=== PATIENT | male | born 1985 | race Caucasian/White ===

== ENCOUNTER → 2021-03-11 | Outpatient (CLI) | payer OTHER ==
[~2021-03-11] MED LIST: DEXA4TA PO; LIDOCAINE 1% MDV 20ML VIAL As Ordered ONE; MIDAZOLAM INJ 2MG/2ML VIAL (J2250 PER 1MG) As Ordered ONE; ONDA8TAB8 PO; PROC10TA4 PO; ceFAZolin 1GM VIAL (J0690 PER 500MG) As Ordered ONE; diphenhydrAMINE 50MG/ML VIAL (J1200) As Ordered ONE; fentaNYL 100 MCG/2 ML INJECTION (J3010) As Ordered ONE
--- NOTE | 2021-03-11 15:02 | IRHP ---
[facility] IR Pre-Procedure H & P General Date of Service: March 11, 2021 Procedure: Same Day Surgery Interval History and Physical I have seen the patient and reviewed last H & P performed within 30 days. There is no significant interval change. History of Present Illness Chief Complaint The patient is a 36-year-old male admitted with a reason for visit of Testicular Ca. PRE-PROCEDURE DIAGNOSIS: Testicular cancer HEART: Normal rate. LUNGS: Normal breathing at rest. ASA Classification ASA Classification: II-Mild systemic disease Mallampati Score: II NPO: Yes Problems with prior sedation: No Obstructive Sleep Apnea: No Plan moderate sedation Allergies Coded Allergies: No Known Allergies (Verified Allergy, Unknown, 03/06/21) PEPE TRIANA MD March 11, 2021 15:02
[2021-03-11 17:40] VITALS: BP 117/78
--- NOTE | 2021-03-12 13:11 | IRPON ---
IR Postoperative Note Date Of Procedure: March 11, 2021 Time Of Procedure: 16:00 IR Postoperative Note IR Ultrasound and fluoroscopy guided port placement IR Ultrasound of the neck. IR Moderate sedation. Clinical indication: Testicular cancer. Physician: Dr. Moya. Procedure: The patient was advised of the benefits, risks, and alternatives of the procedure and informed consent was obtained. A time-out was performed with verification of the patient's name, MRN, site of procedure and type of procedure to be performed. The patient was positioned in the supine position on the angiographic table. The site was prepped and draped in the usual sterile fashion. Moderate sedation was performed by the physician including the presence of an independent trained RN who assisted and monitored the patient's level of consciousness and physiologic status. Following the administration of fentanyl and Versed , the physician spent 45 minutes of continuous face to face time with the patient. Ultrasound of the neck reveals a patent and compressible right internal jugular vein. A circular knife cutter machine radiograph reveals no gross abnormality. The neck and anterior chest wall were anesthetized with lidocaine. The right internal jugular vein was accessed using a microintroducer needle under ultrasound guidance, via a lateral approach. An 018 wire was advanced into the superior vena cava, the needle was removed and a microsheath was placed. An Amplatz wire was then passed into the inferior vena cava. An incision at the internal jugular vein access site and anterior chest wall were made using a scalpel. An incision was made at the anterior chest wall. A small pocket was created using a combination of blunt and sharp dissection. A tunneling device was then used to pass the catheter from the pocket to the neck puncture site. An 8- Iranian Angio Cardize Smart power port was then positioned in the pocket. The catheter was then measured and cut. The introducer sheath was exchanged for a peel-away sheath. The catheter was passed through the peel-away sheath into the internal jugular vein and the peel-away sheath was removed. The port tip was positioned at the cavoatrial junction. The port was then accessed with a Garcia needle. The port flushes and aspirates well. The puncture site in the neck was closed. The chest wall incision was then closed with 2-0 Vicryl and 4-0 Monocryl. Glue and Steri- Strips were applied. A sterile dressing was then applied. The patient tolerated the procedure well and was returned to the PRU in stable condition. Estimated blood loss: <5 ml. Complications: None. Conclusion: 1. Successful placement of an 8-Iranian Angio dynamics Smart power port via the right internal jugular vein. The port is ready for immediate use. 2. Patient to follow up in IR clinic in 2 weeks. Thank you for this referral. PEPE MOYA MD March 12, 2021 13:11
== END ==
LOC: M IRPRO 14:01
PROVIDERS: ATTEND Radiology Diagnostic Radiology
DX: C62.90 Malignant neoplasm of unspecified testis, unspecified whether descended or undescended (principal)
CPT/HCPCS: 36561; 99152; 99153; C1769; C1788; C1894; J0690; J1200; J1642; J1644; J2250; J3010

== ENCOUNTER → 2021-03-26 | Outpatient (POV) | payer OTHER ==
[~2021-03-26] VITALS: Ht 175.3 cm; Wt 160.0 kg
[~2021-03-26] MED LIST changes: -LIDOCAINE 1% MDV 20ML VIAL As Ordered ONE; -MIDAZOLAM INJ 2MG/2ML VIAL (J2250 PER 1MG) As Ordered ONE; -ceFAZolin 1GM VIAL (J0690 PER 500MG) As Ordered ONE; -diphenhydrAMINE 50MG/ML VIAL (J1200) As Ordered ONE; -fentaNYL 100 MCG/2 ML INJECTION (J3010) As Ordered ONE
--- NOTE | 2021-03-27 08:34 | IRPN ---
[facility] IR Progress Note IR Progress Note DATE: March 26, 2021 FOLLOW-UP: Status post port placement. Patient states port site feels good. No pain, no fevers, no chills. Patient reports the port has been used without any issues. ON EXAMINATION: Port site appears to be healing well. Dermabond and Steri-Strips are off. No redness, tenderness or fluctuance at site. IMPRESSION: Doing well status post port placement. No further follow-up scheduled unless initiated by patient and/or referring provider. Thank you for this referral Allergies Coded Allergies: No Known Allergies (Verified Allergy, Unknown, 03/06/21) VS,Fishbone, I+O VS, Fishbone, I+O Vital Signs Date Time Temp Pulse Resp B/P (MAP) Pulse Ox O2 Delivery O2 Flow Rate FiO2 03/26/21 10:15 98.0 95 20 100 Room Air PEPE TRIANA MD March 27, 2021 08:34
== END ==
LOC: M IRPOV 09:39
PROVIDERS: ATTEND Radiology Diagnostic Radiology
DX: Z45.2 Encounter for adjustment and management of vascular access device (principal)

== ENCOUNTER → 2021-04-18 | Outpatient (CLI) | payer OTHER ==
[~2021-04-18] MED LIST changes: +GASTROGRAFIN SOLUTION 30ML (Q9963) As Ordered ONE; +ISOVUE-370 76% 100ML VIAL As Ordered ONE
--- NOTE | 2021-04-19 06:27 | REP ---
INDICATION: TESTICULAR TUMOR COMPARISON: 02/12/2021 TECHNIQUE: Axial contrast enhanced images from the thoracic inlet to the upper abdomen with coronal and sagittal reformations using 100 ml Isovue 370 intravenous contrast material. Examination followed by CT of the abdomen and pelvis. This CT examination was performed using the following dose reduction techniques: Automated exposure control, adjustment of mA and/or kv according to the patient's size, and use of iterative reconstruction technique. FINDINGS: Pulmonary embolus extends from the right main pulmonary artery into right lower lobe branches. Bilateral lung randhawa are well aerated. Very small nodule in the right upper lung zone measures 3 mm (series 201; image 28) along with smaller similar nodular densities in the posterior aspect of the right apex. No further acute consolidation, nodule or mass. No effusion. No pneumothorax. Tracheobronchial tree is patent. Further evaluation of the mediastinum demonstrates normal thoracic aorta and heart/pericardium. No axillary, hilar, or mediastinal adenopathy. IMPRESSION: 1. Pulmonary embolus in the right main pulmonary artery extending to the right lower lobe. 2. Small enhancing nodules in the right upper lung zone cannot exclude metastatic foci and appear relatively new as compared to 02/12/2021. <Electronically signed by Art Maria > 04/19/21 0623
--- NOTE | 2021-04-19 06:32 | REP ---
INDICATION: TESTICULAR TUMOR. COMPARISON: 02/11/2021 TECHNIQUE: Axial contrast-enhanced images from the lung bases to the pubic symphysis using 100 cc Isovue 370 intravenous contrast material. Delayed images of the abdomen along with coronal and sagittal reformations obtained. This CT examination was performed using the following dose reduction techniques: Automated exposure control, adjustment of mA and/or kv according to the patient's size, and the use of iterative reconstruction technique. FINDINGS: Large cystic presumed lymph node in the retrocaval/right para-aortic retroperitoneum measuring greater than 7 cm diameter is similar in appearance but significantly decreased in size when compared to prior examination. Liver, spleen, pancreas, gallbladder, bilateral adrenal glands and kidneys are normal. The enteric system including stomach, small, and large bowel appears normal. No evidence for obstruction or acute inflammatory process. Normal terminal ileum and appendix are identified in the right lower quadrant. Sigmoid diverticula noted without acute diverticulitis. Pelvis demonstrates normal bladder and age-appropriate prostate/seminal vesicles. No ascites. No free air. Abdominal aorta and vasculature appear normal. Musculoskeletal structures are intact and without acute osseous abnormality. IMPRESSION: 1. Large cystic lesion in the retroperitoneum as described above likely representing lymph nodes again identified but considerably decreased in size when compared to 02/11/2021. No further obvious adenopathy or mass lesion/metastatic disease. 2. No further acute abdominopelvic pathology appreciated. <Electronically signed by Art Maria > 04/19/21 0628
== END ==
LOC: M RAD 12:10
PROVIDERS: ATTEND Internal Medicine Hematology & Oncology
DX: D70.9 Neutropenia, unspecified (principal); R91.8 Other nonspecific abnormal finding of lung field; I26.99 Other pulmonary embolism without acute cor pulmonale
CPT/HCPCS: 71260; 74177; J1642; Q9963; Q9967

== ENCOUNTER → 2021-04-23 | Outpatient (CLI) | payer OTHER ==
[~2021-04-23] MED LIST changes: +ELIQ5TAB PO; -GASTROGRAFIN SOLUTION 30ML (Q9963) As Ordered ONE; -ISOVUE-370 76% 100ML VIAL As Ordered ONE
--- NOTE | 2021-04-23 10:48 | REP ---
INDICATION: EBOLISM COMPARISON: None. TECHNIQUE: Alston scale and color Doppler evaluation using linear high frequency transducer. FINDINGS: Ultrasound examination of the right and left lower extremity deep venous structures from the common femoral vein through the calf/ankle to include the peroneal, and tibial veins demonstrates normal compressibility flow and wave patterns in response to respiration and augmentation. There is no evidence for deep venous thrombosis. IMPRESSION: No evidence for deep venous thrombosis bilateral lower extremities. <Electronically signed by Art Maria > 04/23/21 [id number]
--- NOTE | 2021-04-23 10:53 | REP ---
INDICATION: EMBOLISM COMPARISON: None. TECHNIQUE: Alston scale and color Doppler evaluation using linear high frequency transducer. FINDINGS: Ultrasound examination of the left upper extremity demonstrates normal flow and no evidence for deep venous thrombosis. Ultrasound examination of the right upper extremity demonstrates nonocclusive possibly chronic thrombus in the right axillary and proximal basilic veins. Patient gives a history of prior thrombus. No occluding thrombus in the right upper extremity noted IMPRESSION: Nonocclusive thrombus in the right upper extremity possibly chronic. Left upper extremity is normal. <Electronically signed by Art Maria > 04/23/21 [id number]
== END ==
LOC: M RAD 09:29
PROVIDERS: ATTEND Internal Medicine Hematology & Oncology
DX: I82.A11 Acute embolism and thrombosis of right axillary vein (principal); I82.611 Acute embolism and thrombosis of superficial veins of right upper extremity

== ENCOUNTER 2021-05-10 10:47 | Inpatient (IN) | payer OTHER ==
[~2021-05-10] VITALS: Ht 175.3 cm; Wt 75.6 kg
[~2021-05-10 10:47] MED LIST changes: +PANT40TA29 PO
[2021-05-10] MEDS ORDERED: NS 1,000 ML IV ONE (12:40)
[2021-05-10] MEDS ORDERED: GI COCKTAIL 50ML BTL(HYOSCYAMINE/MAALOX/LIDOCAINE VISCOUS)(1:3:1) PO ONE (12:40)
[2021-05-10 13:50] LABS: HEMOGLOBIN 7.2 g/dl (13.5-17.5); LYMPH # 0.2 10^3/uL (1.5-5.0); MEAN CORPUSCULAR HEMOGLOBIN 30.9 pg (27.0-33.0); MEAN CORPUSCULAR HGB CONC 35.5 g/dl (32.0-36.5); MEAN CORPUSCULAR VOLUME 87.1 fl (80.0-96.0); MONO % 4.3 % (2.0-8.0); NEUTROPHILS % 8.7 % (36.0-66.0); RED BLOOD COUNT 2.33 10^6/uL (4.30-6.10)
[2021-05-10 14:42] LABS: ALBUMIN 3.7 GM/DL (3.2-5.2); ALT/SGPT 19 U/L (12-78); BILIRUBIN,DIRECT 0.5 MG/DL (0.0-0.2); BILIRUBIN,TOTAL 1.8 MG/DL (0.2-1.0); BLOOD UREA NITROGEN 23 MG/DL (7-18); CALCIUM LEVEL 8.6 MG/DL (8.5-10.1); CARBON DIOXIDE LEVEL 26 MEQ/L (21-32); CHLORIDE LEVEL 99 MEQ/L (98-107); CK-MB VALUE MASS < 1.0 NG/ML (<3.6); CPK CREATINE PHOSPHOKINASE 18 U/L (39-308); CREATININE FOR GFR 1.11 MG/DL (0.70-1.30); FREE T4 1.34 NG/DL (0.76-1.46); GLOMERULAR FILTRATION RATE > 60.0 (>60); GLUCOSE, FASTING 104 MG/DL (70-100); LIPASE 45 U/L (73-393); MB/CK RELATIVE INDEX 5.56 (< OR =4); POTASSIUM SERUM 4.4 MEQ/L (3.5-5.1); SODIUM LEVEL 132 MEQ/L (136-145); THYROID STIMULATING HORMONE 0.487 uIU/ML (0.358-3.740); TOTAL PROTEIN 6.9 GM/DL (6.4-8.2); TROPONIN I < 0.02 NG/ML (< 0.10)
[2021-05-10 14:50] LABS: WHITE BLOOD COUNT 0.2 10^3/uL (4.0-10.0)
[2021-05-10 14:51] LABS: HEMATOCRIT 20.3 % (42.0-52.0); PLATELET COUNT, AUTOMATED 5 10^3/uL (150-450)
[2021-05-10] MEDS ORDERED: ISOVUE-370 76% 100ML VIAL As Ordered ONE (15:00)
--- NOTE | 2021-05-10 15:25 | REP ---
INDICATION: exhaustion on exertion known PE COMPARISON: 04/18/2021 TECHNIQUE: Axial contrast enhanced images from the thoracic inlet to the upper abdomen using pulmonary embolus technique with multiplanar re-formations. 100 ml Isovue 370 intravenous contrast material administered without complication. This CT examination was performed using the following dose reduction techniques: Automated exposure control, adjustment of mA and/or kv according to the patient's size, and use of iterative reconstruction technique. FINDINGS: Satisfactory enhancement of the pulmonary vasculature is achieved and no filling defects are identified to suggest pulmonary embolus. Further evaluation of the mediastinum demonstrates normal thoracic aorta, heart and pericardium. Bkczyy-F-Bler identified with tip in the SVC. The bilateral lung randhawa are well aerated and clear without consolidation pleural effusion or pneumothorax. Tracheobronchial tree is patent. No nodule or mass lesion is identified. No adenopathy noted. Surrounding musculoskeletal structures intact IMPRESSION: No evidence for pulmonary embolus. No acute mediastinal or pleural parenchymal process. <Electronically signed by Art Maria > 05/10/21 0522
--- NOTE | 2021-05-10 15:32 | REP ---
INDICATION: indigestion known metastatic germ cell tumor. COMPARISON: 04/18/2021 TECHNIQUE: Axial contrast-enhanced images from the lung bases to the pubic symphysis using 100 cc Isovue 370 intravenous contrast material. Coronal and sagittal reformations obtained. This CT examination was performed using the following dose reduction techniques: Automated exposure control, adjustment of mA and/or kv according to the patient's size, and the use of iterative reconstruction technique. FINDINGS: Esophageal wall thickening of the distal esophagus may reflect esophagitis and should be correlated clinically. Septated cystic lesion in the retroperitoneal space which appears to somewhat compress and surround the IVC is again noted measuring approximately 6.3 x 5.8 x 8.7 cm and slightly decreased in size when compared to prior examination. Liver, spleen, pancreas, gallbladder, bilateral adrenal glands and kidneys are normal. The enteric system including stomach, small, and large bowel appears normal. No evidence for obstruction or acute inflammatory process. Normal terminal ileum and appendix are identified in the right lower quadrant. Pelvis demonstrates normal bladder and age-appropriate prostate/seminal vesicles. No ascites. No free air. No further adenopathy. Abdominal aorta and vasculature appear normal. Musculoskeletal structures are intact and without acute osseous abnormality. IMPRESSION: 1. Known retroperitoneal cystic structure adjacent to the IVC again noted which may be slightly decreased in size from prior examination. No further similar abnormal lesions or adenopathy noted. No ascites. 2. Circumferential thickening to the distal esophagus may reflect esophagitis and should be correlated clinically. 3. No further acute abdominopelvic pathology appreciated. <Electronically signed by Art Maria > 05/10/21 [id number]
[2021-05-10 16:42] LABS: RSV AMPLIFICATION NEGATIVE (NEGATIVE)
[2021-05-10] MEDS ORDERED: ONDANSETRON 4MG/2ML VIAL IV PRN (16:55)
[2021-05-10] MEDS ORDERED: GI COCKTAIL 50ML BTL(HYOSCYAMINE/MAALOX/LIDOCAINE VISCOUS)(1:3:1) PO PRN (17:15)
--- NOTE | 2021-05-10 17:33 | HPEPDOC ---
General Date of Admission May 10, 2021 at 16:43 Date of Service: May 10, 2021 Chief Complaint The patient is a 36-year-old male admitted with a reason for visit of Neutropenia, Pancytopenia. Source: Patient History of Present Illness Mr. Suggs is a 36 year old male with testicular cancer who just completed chemotherapy on 05/04/21 who presents with fatigue and indigestion. He had finished 4 round of etoposide cis-grayling and is planning for surgery at [facility]. About 3 days ago, he started to feel weak and fatigue with indigestion. He had upper-epigastric discomfort with nausea. He had watery diarrhea once a day without blood or darkening of stool. He had a temperature between 99.3 to 100.3. Today, since his symptoms weren't improving, he came to the ED for evaluation. While in the ED, he was given a GI cocktail which helped with his abdominal discomfort. He was found to be pancytopenic with WBC 0.2, Hgb 7.2, and platelet 5. I spoke with oncology, Dr. Rogers, who also saw the patient. Patient will be admitted for pancytopenia and symptomatic anemia. Home Medications Scheduled Apixaban (Eliquis) 5 Mg Tablet, 1 TAB PO as directed 2 tablets twice a day for 7 days then one tablet twice daily Pantoprazole Sodium (Pantoprazole Sodium) 40 Mg Tablet.dr, 40 MG PO DAILY Scheduled PRN Ondansetron (Ondansetron Odt) 8 Mg Tab.rapdis, 8 MG PO Q8HP PRN for NAUSEA OR VOMITING Prochlorperazine Maleate (Prochlorperazine Maleate) 10 Mg Tablet, 10 MG PO Q6H PRN for NAUSEA OR VOMITING Allergies Coded Allergies: No Known Allergies (Verified Allergy, Unknown, 03/06/21) Past Medical History Medical History 1. 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 Pulmonary embolism seen on 04/18/21 Surgical History 1. Chemo-port placement Family History Patient is adopted. Knows that Crohn's disease runs on mother's side of the family Social History * Smoker: Denies Alcohol: occationally Drugs: denies A-FIB/CHADSVASC A-FIB History Current/History of A-Fib/PAF?: No Review of Systems Constitutional: Reports: Weakness, Fatigue; Denies: Chills, Fever Eyes: Denies: Vision change ENT: Denies: Sore Throat Skin: Denies: Rash Pulmonary: Reports: Cough (Mild cough since fatigue started); Denies: Dyspnea Cardiovascular: Denies: Chest Pain Gastrointestinal: Reports: Abdominal Pain (Upper abdominal indigestion) Genitourinary: Denies: Dysuria Hematologic: Denies: Bruising Neurological: Denies: Numbness Psych: Reports: Anxiety Physical Examination General Exam: Positive: Alert, Cooperative Eye Exam: Positive: EOMI; Negative: Sclera icteric ENT Exam: Positive: Atraumatic Neck Exam: Positive: Supple Chest Exam: Positive: Clear to auscultation; Negative: Rales, Rhonchi, Wheezing Heart Exam: Positive: Tachycardic, Regular Rhythm Abdomen Exam: Positive: Normal bowel sounds, Soft; Negative: Tenderness Extremity Exam: Negative: Edema Neuro Exam: Positive: Normal Speech, Cranial Nerves 3-12 NL Psych Exam: Positive: Mental status NL, Mood NL Vital Signs Vital Signs Date Time Temp Pulse Resp B/P (MAP) Pulse Ox O2 Delivery O2 Flow Rate FiO2 05/10/21 14:36 05/10/21 14:31 99.8 96 19 100 Room Air Laboratory Data Labs 24H Laboratory Tests 2 05/10/21 13:31: Immature Granulocyte % (Auto) 0.0, Neutrophils (%) (Auto) 8.7L, Lymphocytes (%) (Auto) 87.0H, Monocytes (%) (Auto) 4.3, Eosinophils (%) (Auto) 0.0, Basophils (%) (Auto) 0.0, Neutrophils # (Auto) 0.0L, Lymphocytes # (Auto) 0.2L, Monocytes # (Auto) 0.0, Eosinophils # (Auto) 0.0, Basophils # (Auto) 0.0, Nucleated Red Blood Cells % (auto) 0.0, Immature Platelet Fraction 2.6, Anion Gap 7L, Glomerular Filtration Rate > 60.0, Calcium Level 8.6, Total Bilirubin 1.8H, Direct Bilirubin 0.5H, Aspartate Amino Transf (AST/SGOT) 9, Alanine Aminotransferase (ALT/SGPT) 19, Alkaline Phosphatase 54, Total Creatine Kinase 18L, Creatine Kinase MB < 1.0, Creatine Kinase MB Relative Index 5.56H, Troponin I < 0.02, Total Protein 6.9, Albumin 3.7, Albumin/Globulin Ratio 1.2, Lipase 45L, Thyroid Stimulating Hormone (TSH) 0.487, Free Thyroxine 1.34 05/10/21 15:48: Coronavirus (COVID-19)(PCR) NEGATIVE, Influenza Type A (RT-PCR) NEGATIVE, Influenza Type B (RT-PCR) NEGATIVE, Respiratory Syncytial Virus (PCR) NEGATIVE CBC/BMP Laboratory Tests 05/10/21 13:31 Assessment/Plan Mr. Suggs is a 36 year old male with testicular cancer who just completed chemotherapy on 05/04/21 who presents with fatigue and indigestion. He was found to be pancytopenic. This pancytopenia and indigestion is most likely due to chemotherapy. Oncology evaluated patient and provided recommendations. Plan / VTE VTE Prophylaxis Ordered?: Yes Plan Plan 1. Neutropenia -No recorded fever, but low grade fever -Patient should be in individual room -Requesting neutropenic diet (no raw foods like salad, only cooked foods) -Zosyn IV as prophylaxis -Neupogen 480mcg daily as long as absolute neutrophil count is less than 500 2. Symptomatic anemia -Most likely cause of exertional dyspnea and weakness -Unlikely GI bleed as no change in stool or frequent bowel movement -Most likely due to chemotherapy -Hgb goal of 9 -Being transfused with 2u pRBC -Hold apixaban 3. Thrombocytopenia -Transfusing platelets -Platelet goal of 20,000 4. History of pulmonary embolism -Possibly due to clot on PICC/Port -Repeat CT angio is negative for clot -Hold apixaban at this time 5. DVT ppx -No chemical ppx -TEDs Disposition: Pending clinical improvement FILI PALAFOX DO May 10, 2021 17:33
[2021-05-10 18:38] VITALS: BP 110/65
[2021-05-10 18:58] VITALS: BP 119/65
[2021-05-10 19:37] VITALS: BP 125/72
[2021-05-10 19:38] VITALS: BP 125/72
[2021-05-10 20:25] VITALS: BP_SYST 123; BP_DIAS 72; BP_DIAS 73
--- NOTE | 2021-05-10 20:26 | ECGEPIP ---
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
[2021-05-10] MEDS: FILGRASTIM 480 MCG/0.8 ML SYRINGE (J1442) SC SCH (21:27)
[2021-05-10] MEDS: PIPERACILLIN/TAZOBACTAM SOD 3.375 GM in D5W MINI-BAG PLUS 50 ML IV SCH (21:28)
[2021-05-10 23:54] LABS: MEAN CORPUSCULAR HGB CONC 35.6 g/dl (32.0-36.5); MEAN CORPUSCULAR VOLUME 87.2 fl (80.0-96.0); RED BLOOD COUNT 1.87 10^6/uL (4.30-6.10)
[2021-05-10 23:55] LABS: WHITE BLOOD COUNT 0.3 10^3/uL (4.0-10.0)
[2021-05-10 23:56] LABS: HEMATOCRIT 16.3 % (42.0-52.0); HEMOGLOBIN 5.8 g/dl (13.5-17.5)
[2021-05-10 23:57] LABS: PLATELET COUNT, AUTOMATED 17 10^3/uL (150-450)
[2021-05-11] VITALS (23 sets, daily range): BP systolic 108–141; BP diastolic 64–85
[2021-05-11] MEDS: NS 1,000 ML IV SCH (00:40)
[2021-05-11] MEDS ORDERED: FUROSEMIDE 20MG/2ML VIAL (J1940) IV ONE (00:45)
[2021-05-11] MEDS: PIPERACILLIN/TAZOBACTAM SOD 3.375 GM in D5W MINI-BAG PLUS 50 ML IV SCH ×4 (02:26→19:46)
[2021-05-11 08:31] LABS: HEMATOCRIT 22.8 % (42.0-52.0); MEAN CORPUSCULAR HEMOGLOBIN 30.7 pg (27.0-33.0); MEAN CORPUSCULAR HGB CONC 35.1 g/dl (32.0-36.5); MEAN CORPUSCULAR VOLUME 87.4 fl (80.0-96.0); RED BLOOD COUNT 2.61 10^6/uL (4.30-6.10)
[2021-05-11 08:57] LABS: WHITE BLOOD COUNT 0.2 10^3/uL (4.0-10.0)
[2021-05-11 08:58] LABS: PLATELET COUNT, AUTOMATED 13 10^3/uL (150-450)
[2021-05-11] MEDS: PANTOPRAZOLE 40MG TAB (PROTONIX) PO SCH (09:10)
[2021-05-11] MEDS: FILGRASTIM 480 MCG/0.8 ML SYRINGE (J1442) SC SCH (10:48)
--- NOTE | 2021-05-11 13:26 | IPNPDOC ---
Subjective Date Seen The patient was seen on 05/11/21. Subjective Chief Complaint/HPI Mr. Suggs is a 36 year old male with testicular cancer who just completed chemotherapy on 05/04/21 who presents with fatigue and indigestion. This morning, he denies any chest pain or dyspnea. Indigestion improved. Otherwise, his WBC, Hgb, and Plt are still below goal. Will transfuse more blood and platelets Objective Physical Examination General Exam: Positive: Alert, Cooperative Eye Exam: Positive: EOMI; Negative: Sclera icteric ENT Exam: Positive: Atraumatic Neck Exam: Positive: Supple Chest Exam: Positive: Clear to auscultation; Negative: Rales, Rhonchi, Wheezing Heart Exam: Positive: Tachycardic, Regular Rhythm Abdomen Exam: Positive: Normal bowel sounds, Soft; Negative: Tenderness Extremity Exam: Negative: Edema Neuro Exam: Positive: Normal Speech, Cranial Nerves 3-12 NL Psych Exam: Positive: Mental status NL, Mood NL Assessment /Plan Assessment Mr. Suggs is a 36 year old male with testicular cancer who just completed chemotherapy on 05/04/21 who presents with fatigue and indigestion. He was found to be pancytopenic. This pancytopenia and indigestion is most likely due to chemotherapy. Oncology evaluated patient and provided recommendations. Plan/VTE VTE Prophylaxis Ordered?: Yes Plan 1. Neutropenia -Patient should be in individual room -Requesting neutropenic diet (no raw foods like salad, only cooked foods) -Zosyn IV as prophylaxis -MRSA swab negative -Neupogen 480mcg daily as long as absolute neutrophil count is less than 500 2. Symptomatic anemia -Most likely cause of exertional dyspnea and weakness -Unlikely GI bleed as no change in stool or frequent bowel movement -Most likely due to chemotherapy -Hold apixaban -Hgb goal of 9 -2u pRBC given, another 2u pRBC ordered 3. Thrombocytopenia -Platelet goal of 20,000 -Transfusing platelets -1u given, giving another 1u 4. History of pulmonary embolism -Possibly due to clot on PICC/Port -Repeat CT angio is negative for clot -Hold apixaban at this time 5. DVT ppx -No chemical ppx -TEDs Disposition: Pending improvement in cell lines VS, I&O, 24H, Fishbone Vital Signs/I&O Vital Signs Date Time Temp Pulse Resp B/P (MAP) Pulse Ox O2 Delivery O2 Flow Rate FiO2 05/11/21 12:41 98.6 101 20 118/75 97 Room Air I&O- Last 24 Hours up to 6 AM 05/11/21 06:00 Intake Total 2920 ml Output Total 0 ml Balance 2920 ml Laboratory Data 24H LABS Laboratory Tests 2 05/10/21 13:31: Immature Granulocyte % (Auto) 0.0, Neutrophils (%) (Auto) 8.7L, Lymphocytes (%) (Auto) 87.0H, Monocytes (%) (Auto) 4.3, Eosinophils (%) (Auto) 0.0, Basophils (%) (Auto) 0.0, Neutrophils # (Auto) 0.0L, Lymphocytes # (Auto) 0.2L, Monocytes # (Auto) 0.0, Eosinophils # (Auto) 0.0, Basophils # (Auto) 0.0, Nucleated Red Blood Cells % (auto) 0.0, Immature Platelet Fraction 2.6, Anion Gap 7L, Gl omerular Filtration Rate > 60.0, Calcium Level 8.6, Total Bilirubin 1.8H, Direct Bilirubin 0.5H, Aspartate Amino Transf (AST/SGOT) 9, Alanine Aminotransferase (ALT/SGPT) 19, Alkaline Phosphatase 54, Total Creatine Kinase 18L, Creatine Kinase MB < 1.0, Creatine Kinase MB Relative Index 5.56H, Troponin I < 0.02, Total Protein 6.9, Albumin 3.7, Albumin/Globulin Ratio 1.2, Lipase 45L, Thyroid Stimulating Hormone (TSH) 0.487, Free Thyroxine 1.34 05/10/21 15:48: Coronavirus (COVID-19)(PCR) NEGATIVE, Influenza Type A (RT-PCR) NEGATIVE, Influenza Type B (RT-PCR) NEGATIVE, Respiratory Syncytial Virus (PCR) NEGATIVE 05/10/21 23:43: Nucleated Red Blood Cells % (auto) 0.0 05/11/21 08:15: Nucleated Red Blood Cells % (auto) 0.0 05/11/21 10:56: Methicillin-Resist S.aureus DNA PCR NOT DETECTED CBC/BMP Laboratory Tests 05/10/21 13:31 05/10/21 23:43 05/11/21 08:15 Microbiology Microbiology 05/10/21 Blood Culture, Received Pending 05/10/21 Blood Culture, Received Pending FILI PALAFOX DO May 11, 2021 13:26
[2021-05-11 16:25] LABS: HEMATOCRIT 23.3 % (42.0-52.0); HEMOGLOBIN 8.2 g/dl (13.5-17.5); MEAN CORPUSCULAR HEMOGLOBIN 30.5 pg (27.0-33.0); MEAN CORPUSCULAR HGB CONC 35.2 g/dl (32.0-36.5); MEAN CORPUSCULAR VOLUME 86.6 fl (80.0-96.0); RED BLOOD COUNT 2.69 10^6/uL (4.30-6.10)
[2021-05-11 16:28] LABS: PLATELET COUNT, AUTOMATED 13 10^3/uL (150-450); WHITE BLOOD COUNT 0.3 10^3/uL (4.0-10.0)
[2021-05-12] MEDS: NS 1,000 ML IV SCH (00:40)
[2021-05-12 00:47] VITALS: BP 127/82
[2021-05-12] MEDS: PIPERACILLIN/TAZOBACTAM SOD 3.375 GM in D5W MINI-BAG PLUS 50 ML IV SCH ×4 (00:59→19:56)
[2021-05-12 01:20] LABS: HEMATOCRIT 24.7 % (42.0-52.0); HEMOGLOBIN 8.7 g/dl (13.5-17.5); MEAN CORPUSCULAR HEMOGLOBIN 30.4 pg (27.0-33.0); MEAN CORPUSCULAR HGB CONC 35.2 g/dl (32.0-36.5); MEAN CORPUSCULAR VOLUME 86.4 fl (80.0-96.0); RED BLOOD COUNT 2.86 10^6/uL (4.30-6.10)
[2021-05-12 01:21] LABS: PLATELET COUNT, AUTOMATED 13 10^3/uL (150-450); WHITE BLOOD COUNT 0.4 10^3/uL (4.0-10.0)
[2021-05-12 06:00] VITALS: BP 107/72
[2021-05-12 06:53] LABS: EOS % 2.4 % (0.0-3.0); HEMATOCRIT 25.5 % (42.0-52.0); LYMPH # 0.4 10^3/uL (1.5-5.0); LYMPH % 85.4 % (24.0-44.0); MEAN CORPUSCULAR HEMOGLOBIN 30.5 pg (27.0-33.0); MEAN CORPUSCULAR HGB CONC 35.3 g/dl (32.0-36.5); MEAN CORPUSCULAR VOLUME 86.4 fl (80.0-96.0); MONO % 2.4 % (2.0-8.0); NEUTROPHILS % 9.8 % (36.0-66.0); RED BLOOD COUNT 2.95 10^6/uL (4.30-6.10)
[2021-05-12 07:06] LABS: WHITE BLOOD COUNT 0.4 10^3/uL (4.0-10.0)
[2021-05-12 07:07] LABS: PLATELET COUNT, AUTOMATED 12 10^3/uL (150-450)
[2021-05-12 07:21] LABS: BLOOD UREA NITROGEN 14 MG/DL (7-18); CALCIUM LEVEL 8.6 MG/DL (8.5-10.1); CARBON DIOXIDE LEVEL 27 MEQ/L (21-32); CHLORIDE LEVEL 105 MEQ/L (98-107); CREATININE FOR GFR 0.91 MG/DL (0.70-1.30); GLOMERULAR FILTRATION RATE > 60.0 (>60); GLUCOSE, FASTING 87 MG/DL (70-100); SODIUM LEVEL 139 MEQ/L (136-145)
--- NOTE | 2021-05-12 10:13 | IPNPDOC ---
Subjective Date Seen The patient was seen on 05/12/21. Subjective Chief Complaint/HPI Mr. Suggs is a 36 year old male with testicular cancer who just completed chemotherapy on 05/04/21 who presents with fatigue and indigestion and found to have pancytopenia. This morning, he denies any dyspnea or chest pain. Hemoglobin at goal, but platelets and WBC are still low. Objective Physical Examination General Exam: Positive: Alert, Cooperative Eye Exam: Positive: EOMI; Negative: Sclera icteric ENT Exam: Positive: Atraumatic Neck Exam: Positive: Supple Chest Exam: Positive: Clear to auscultation; Negative: Rales, Rhonchi, Wheezing Heart Exam: Positive: Tachycardic, Regular Rhythm Abdomen Exam: Positive: Normal bowel sounds, Soft; Negative: Tenderness Extremity Exam: Negative: Edema Neuro Exam: Positive: Normal Speech, Cranial Nerves 3-12 NL Psych Exam: Positive: Mental status NL, Mood NL Assessment /Plan Assessment Mr. Suggs is a 36 year old male with testicular cancer who just completed chemotherapy on 05/04/21 who presents with fatigue and indigestion. He was found to be pancytopenic. This pancytopenia and indigestion is most likely due to chemotherapy. Oncology evaluated patient and provided recommendations. Plan/VTE VTE Prophylaxis Ordered?: Yes Plan 1. Neutropenia -Patient should be in individual room -Requesting neutropenic diet (no raw foods like salad, only cooked foods) -Zosyn IV as prophylaxis -MRSA swab negative -Neupogen 480mcg daily as long as absolute neutrophil count is less than 500 2. Symptomatic anemia -Most likely cause of exertional dyspnea and weakness -Unlikely GI bleed as no change in stool or frequent bowel movement -Most likely due to chemotherapy -Hold apixaban -Hgb goal of 9 -Total of 4u pRBC given 3. Thrombocytopenia -Platelet goal of 20,000 -Transfusing platelets -Total of 3u given, ordering 1u platelets 4. History of pulmonary embolism -Possibly due to clot on PICC/Port -Repeat CT angio is negative for clot -Hold apixaban at this time. Can consider restarting when platelets are more appropriate. 5. DVT ppx -No chemical ppx -TEDs Disposition: Pending improvement in cell lines VS, I&O, 24H, Fishbone Vital Signs/I&O Vital Signs Date Time Temp Pulse Resp B/P (MAP) Pulse Ox O2 Delivery O2 Flow Rate FiO2 05/12/21 06:00 99.1 75 16 107/72 (84) 98 Room Air I&O- Last 24 Hours up to 6 AM 05/12/21 06:00 Intake Total 3721 ml Output Total 600 ml Balance 3121 ml Laboratory Data 24H LABS Laboratory Tests 2 05/11/21 10:56: Methicillin-Resist S.aureus DNA PCR NOT DETECTED 05/11/21 16:10: Nucleated Red Blood Cells % (auto) 0.0, Immature Platelet Fraction 2.2, Urine Color YELLOW, Urine Appearance CLEAR, Urine pH 7.0, Urine Specific [place] 1.011, Urine Protein NEGATIVE, Urine Glucose (UA) NEGATIVE, Urine Ketones NEGATIVE, Urine Blood 1+H, Urine Nitrite NEGATIVE, Urine Bilirubin NEGATIVE, Urine Urobilinogen 2.0H, Urine Leukocyte Esterase NEGATIVE, Urine WBC (Auto) 5H, Urine RBC (Auto) 1, Urine Hyaline Casts (Auto) 0, Urine Bacteria (Auto) NEGATIVE, Urine Squamous Epithelial Cells 0, Urine Sperm (Auto) 05/12/21 00:47: Nucleated Red Blood Cells % (auto) 0.0 05/12/21 06:06: Nucleated Red Blood Cells % (auto) 0.0, Immature Granulocyte % (Auto) 0.0, Neutrophils (%) (Auto) 9.8L, Lymphocytes (%) (Auto) 85.4H, Monocytes (%) (Auto) 2.4, Eosinophils (%) (Auto) 2.4, Basophils (%) (Auto) 0.0, Neutrophils # (Auto) 0.0L, Lymphocytes # (Auto) 0.4L, Monocytes # (Auto) 0.0, Eosinophils # (Auto) 0.0, Basophils # (Auto) 0.0, Anion Gap 7L, Glomerular Filtration Rate > 60.0, Calcium Level 8.6 CBC/BMP Laboratory Tests 05/11/21 16:10 05/12/21 00:47 05/12/21 06:06 Microbiology Microbiology 05/10/21 Blood Culture - Preliminary, Resulted No growth after 24 hours . All specim... 05/10/21 Blood Culture - Preliminary, Resulted No growth after 24 hours . All specim... FILI PALAFOX DO May 12, 2021 10:13
[2021-05-12] MEDS: FILGRASTIM 480 MCG/0.8 ML SYRINGE (J1442) SC SCH (10:44)
[2021-05-12] MEDS: PANTOPRAZOLE 40MG TAB (PROTONIX) PO SCH (10:44)
[2021-05-12 12:10] VITALS: BP 124/86
[2021-05-12 13:28] VITALS: BP 119/82
[2021-05-12 14:00] VITALS: BP 134/87
[2021-05-12] MEDS ORDERED: SLF 3 ML SYR IV SCH (14:00)
[2021-05-12] MEDS ORDERED: SODIUM CHLORIDE 0.9% INJ 10 ML SYR IV PRN (15:10)
[2021-05-12] MEDS ORDERED: SLF 3 ML SYR IV PRN (15:10)
[2021-05-12] MEDS: SODIUM CHLORIDE 0.9% INJ 10 ML SYR IV SCH (15:26)
[2021-05-12 15:31] LABS: EOS % 2.3 % (0.0-3.0); HEMATOCRIT 26.4 % (42.0-52.0); HEMOGLOBIN 9.5 g/dl (13.5-17.5); LYMPH # 0.4 10^3/uL (1.5-5.0); LYMPH % 83.7 % (24.0-44.0); MEAN CORPUSCULAR HEMOGLOBIN 30.9 pg (27.0-33.0); MONO % 4.7 % (2.0-8.0); NEUTROPHILS % 9.3 % (36.0-66.0); RED BLOOD COUNT 3.07 10^6/uL (4.30-6.10)
[2021-05-12 15:33] LABS: WHITE BLOOD COUNT 0.4 10^3/uL (4.0-10.0)
[2021-05-12 15:34] LABS: PLATELET COUNT, AUTOMATED 23 10^3/uL (150-450)
[2021-05-12 19:50] VITALS: BP 133/87
[2021-05-13] VITALS (15 sets, daily range): BP systolic 116–163; BP diastolic 83–97
[2021-05-13] MEDS: NS 1,000 ML IV SCH ×2 (00:40→23:56)
[2021-05-13] MEDS: PIPERACILLIN/TAZOBACTAM SOD 3.375 GM in D5W MINI-BAG PLUS 50 ML IV SCH ×4 (02:07→20:00)
[2021-05-13 06:25] LABS: EOS % 1.9 % (0.0-3.0); HEMATOCRIT 25.1 % (42.0-52.0); HEMOGLOBIN 8.7 g/dl (13.5-17.5); LYMPH # 0.4 10^3/uL (1.5-5.0); LYMPH % 75.9 % (24.0-44.0); MEAN CORPUSCULAR HEMOGLOBIN 29.8 pg (27.0-33.0); MEAN CORPUSCULAR HGB CONC 34.7 g/dl (32.0-36.5); MONO % 5.6 % (2.0-8.0); NEUTROPHILS % 16.6 % (36.0-66.0); RED BLOOD COUNT 2.92 10^6/uL (4.30-6.10)
[2021-05-13 06:27] LABS: NEUTROPHILS # 0.1 10^3/uL (1.5-8.5); PLATELET COUNT, AUTOMATED 12 10^3/uL (150-450); WHITE BLOOD COUNT 0.5 10^3/uL (4.0-10.0)
[2021-05-13 06:49] LABS: BLOOD UREA NITROGEN 16 MG/DL (7-18); CALCIUM LEVEL 8.6 MG/DL (8.5-10.1); CARBON DIOXIDE LEVEL 27 MEQ/L (21-32); CHLORIDE LEVEL 106 MEQ/L (98-107); CREATININE FOR GFR 0.94 MG/DL (0.70-1.30); GLOMERULAR FILTRATION RATE > 60.0 (>60); GLUCOSE, FASTING 91 MG/DL (70-100); SODIUM LEVEL 137 MEQ/L (136-145)
[2021-05-13] MEDS: SODIUM CHLORIDE 0.9% INJ 10 ML SYR IV SCH (09:00)
[2021-05-13] MEDS: PANTOPRAZOLE 40MG TAB (PROTONIX) PO SCH (09:15)
--- NOTE | 2021-05-13 10:22 | IPNPDOC ---
Subjective Date Seen The patient was seen on 05/13/21. Subjective Chief Complaint/HPI Mr. Suggs is a 36 year old male with testicular cancer who just completed chemotherapy on 05/04/21 who presents with fatigue and indigestion and found to have pancytopenia. His platelets and hemoglobin dropped below goal today. Will give another unit of pRBC and platelet. Otherwise, WBC still low and patient will be receiving Neulasta. Otherwise, patient denies chest pain or dyspnea. Updated oncology/hematology, Dr. Rogers. Objective Physical Examination General Exam: Positive: Alert, Cooperative Eye Exam: Positive: EOMI; Negative: Sclera icteric ENT Exam: Positive: Atraumatic Neck Exam: Positive: Supple Chest Exam: Positive: Clear to auscultation; Negative: Rales, Rhonchi, Wheezing Heart Exam: Positive: Tachycardic, Regular Rhythm Abdomen Exam: Positive: Normal bowel sounds, Soft; Negative: Tenderness Extremity Exam: Negative: Edema Neuro Exam: Positive: Normal Speech, Cranial Nerves 3-12 NL Psych Exam: Positive: Mental status NL, Mood NL Assessment /Plan Assessment Mr. Suggs is a 36 year old male with testicular cancer who just completed ch emotherapy on 05/04/21 who presents with fatigue and indigestion. He was found to be pancytopenic. This pancytopenia and indigestion is most likely due to chemotherapy. Oncology evaluated patient and provided recommendations. Plan/VTE VTE Prophylaxis Ordered?: Yes Plan 1. Neutropenia -Patient should be in individual room -Requesting neutropenic diet (no raw foods like salad, only cooked foods) -Zosyn IV as prophylaxis -MRSA swab negative -Neupogen 480mcg daily as long as absolute neutrophil count is less than 500 2. Symptomatic anemia -Most likely cause of exertional dyspnea and weakness -Unlikely GI bleed as no change in stool or frequent bowel movement -Most likely due to chemotherapy -Hold apixaban -Hgb goal of 9 -Total of 4u pRBC given. Giving an addition 1u pRBC today 3. Thrombocytopenia -Platelet goal of 20,000 -Transfusing platelets -Total of 4u given. Giving an additional 1u platelet today 4. History of pulmonary embolism -Possibly due to clot on PICC/Port -Repeat CT angio is negative for clot -Hold apixaban at this time. Can consider restarting when platelets are more appropriate. 5. DVT ppx -No chemical ppx -TEDs Disposition: Bone marrow still suppressed. Pending improvement in cell lines VS, I&O, 24H, Fishbone Vital Signs/I&O Vital Signs Date Time Temp Pulse Resp B/P (MAP) Pulse Ox O2 Delivery O2 Flow Rate FiO2 05/13/21 05:51 98.6 71 18 116/83 (94) 94 Room Air I&O- Last 24 Hours up to 6 AM 05/13/21 06:00 Intake Total 1674 ml Balance 1674 ml Laboratory Data 24H LABS Laboratory Tests 2 05/12/21 15:05: Immature Granulocyte % (Auto) 0.0, Neutrophils (%) (Auto) 9.3L, Lymphocytes (%) (Auto) 83.7H, Monocytes (%) (Auto) 4.7, Eosinophils (%) (Auto) 2.3, Basophils (%) (Auto) 0.0, Neutrophils # (Auto) 0.0L, Lymphocytes # (Auto) 0.4L, Monocytes # (Auto) 0.0, Eosinophils # (Auto) 0.0, Basophils # (Auto) 0.0, Nucleated Red Blood Cells % (auto) 0.0 05/13/21 05:42: Immature Granulocyte % (Auto) 0.0, Neutrophils (%) (Auto) 16.6L, Lymphocytes (%) (Auto) 75.9H, Monocytes (%) (Auto) 5.6, Eosinophils (%) (Auto) 1.9, Basophils (%) (Auto) 0.0, Neutrophils # (Auto) 0.1L, Lymphocytes # (Auto) 0.4L, Monocytes # (Auto) 0.0, Eosinophils # (Auto) 0.0, Basophils # (Auto) 0.0, Nucleated Red Blood Cells % (auto) 0.0, Immature Platelet Fraction 1.6, Anion Gap 4L, Glomerular Filtration Rate > 60.0, Calcium Level 8.6 CBC/BMP Laboratory Tests 05/12/21 15:05 05/13/21 05:42 Microbiology Microbiology 05/10/21 Blood Culture - Preliminary, Resulted No Growth after 48 hours. All Specime... 05/10/21 Blood Culture - Preliminary, Resulted No Growth after 48 hours. All Specime... FILI PALAFOX DO May 13, 2021 10:22
--- NOTE | 2021-05-13 10:48 | IPNPDOC ---
Date Seen The patient was seen on 05/13/21. Progress Note SUBJECTIVE: Patient is a [36]-year-old [] [man ] with [wiith chemotherapy induced pancytopenia.] OBJECTIVE PHYSICAL EXAMINATION: VITAL SIGNS: Please see below. GENERAL: [well developed man in NAD] HEENT: [no oral lulcerations] CARDIOVASCULAR: [S1S2]. RESPIRATORY: [clear]. ABDOMINAL: [soft non-tender] EXTREMITIES: [no edema and no petechiae] NEUROLOGICAL: [normal] PSYCHOLOGICAL: [booored LABORATORY DATA, IMAGING STUDIES, MICROBIOLOGY: Please see below. Echocardiogram: . DVT prophylaxis ordered?: [patient is mobile in room] ASSESSMENT AND PLAN: This is a -year-old [RACE] [GENDER] with . PROBLEMS: 1. [pancytopenia secondary to chemotherapy Continue prophylactic IV antibiotics. Transfuse PRBC to keep hgb above 8, transfuse platelets to keep platelet count above 20. Continue G-CSF (Neupogen) 480 mcg daily until ANC at least 500.]: . 2. [Continue neutropenia diet]: . 3. [I discussed with the patient the need for him to remain in patient as he is requiring testing and transfuison several times per day.]: . DISPOSITION: [Home once counts are adequate and not declining,, and once transfusions no longer required. Patient has agreed ]. Patient discussed with Dr Mota Duration of evaluation 40 min face to face with patient 10 min VS, I&O, 24H, Janice Vital Signs/I&O Vital Signs Date Time Temp Pulse Resp B/P (MAP) Pulse Ox O2 Delivery O2 Flow Rate FiO2 05/13/21 05:51 98.6 71 18 116/83 (94) 94 Room Air I&O- Last 24 Hours up to 6 AM 05/13/21 06:00 Intake Total 1674 ml Balance 1674 ml Laboratory Data 24H LABS Laboratory Tests 2 05/12/21 15:05: Immature Granulocyte % (Auto) 0.0, Neutrophils (%) (Auto) 9.3L, Lymphocytes (%) (Auto) 83.7H, Monocytes (%) (Auto) 4.7, Eosinophils (%) (Auto) 2.3, Basophils (%) (Auto) 0.0, Neutrophils # (Auto) 0.0L, Lymphocytes # (Auto) 0.4L, Monocytes # (Auto) 0.0, Eosinophils # (Auto) 0.0, Basophils # (Auto) 0.0, Nucleated Red Blood Cells % (auto) 0.0 05/13/21 05:42: Immature Granulocyte % (Auto) 0.0, Neutrophils (%) (Auto) 16.6L, Lymphocytes (%) (Auto) 75.9H, Monocytes (%) (Auto) 5.6, Eosinophils (%) (Auto) 1.9, Basophils (%) (Auto) 0.0, Neutrophils # (Auto) 0.1L, Lymphocytes # (Auto) 0.4L, Monocytes # (Auto) 0.0, Eosinophils # (Auto) 0.0, Basophils # (Auto) 0.0, Nucleated Red Blood Cells % (auto) 0.0, Immature Platelet Fraction 1.6, Anion Gap 4L, Glomerular Filtration Rate > 60.0, Calcium Level 8.6 CBC/BMP Laboratory Tests 05/12/21 15:05 05/13/21 05:42 Microbiology Microbiology 05/10/21 Blood Culture - Preliminary, Resulted No Growth after 48 hours. All Specime... 05/10/21 Blood Culture - Preliminary, Resulted No Growth after 48 hours. All Specime... MAMADOU LAMBERT MD May 13, 2021 10:48
[2021-05-13] MEDS: FILGRASTIM 480 MCG/0.8 ML SYRINGE (J1442) SC SCH (11:50)
[2021-05-13 18:25] LABS: HEMATOCRIT 30.9 % (42.0-52.0); MEAN CORPUSCULAR HGB CONC 34.6 g/dl (32.0-36.5); MEAN CORPUSCULAR VOLUME 86.6 fl (80.0-96.0); RED BLOOD COUNT 3.57 10^6/uL (4.30-6.10)
[2021-05-13 18:30] LABS: WHITE BLOOD COUNT 0.6 10^3/uL (4.0-10.0)
[2021-05-13 18:31] LABS: HEMOGLOBIN 10.7 g/dl (13.5-17.5); PLATELET COUNT, AUTOMATED 19 10^3/uL (150-450)
[2021-05-14 00:19] VITALS: BP 131/89
[2021-05-14] MEDS: PIPERACILLIN/TAZOBACTAM SOD 3.375 GM in D5W MINI-BAG PLUS 50 ML IV SCH ×4 (02:23→21:08)
[2021-05-14 06:15] VITALS: BP 125/88
[2021-05-14 06:36] LABS: BASO % 1.3 % (0.0-1.0); EOS % 1.3 % (0.0-3.0); HEMATOCRIT 27.7 % (42.0-52.0); HEMOGLOBIN 9.7 g/dl (13.5-17.5); LYMPH # 0.5 10^3/uL (1.5-5.0); LYMPH % 65.4 % (24.0-44.0); MEAN CORPUSCULAR HEMOGLOBIN 29.8 pg (27.0-33.0); MEAN CORPUSCULAR VOLUME 85.2 fl (80.0-96.0); MONO # 0.1 10^3/uL (0.0-0.8); RED BLOOD COUNT 3.25 10^6/uL (4.30-6.10)
[2021-05-14 06:39] LABS: NEUTROPHILS # 0.2 10^3/uL (1.5-8.5); PLATELET COUNT, AUTOMATED 26 10^3/uL (150-450); WHITE BLOOD COUNT 0.8 10^3/uL (4.0-10.0)
[2021-05-14 06:49] LABS: BLOOD UREA NITROGEN 13 MG/DL (7-18); CALCIUM LEVEL 8.6 MG/DL (8.5-10.1); CARBON DIOXIDE LEVEL 27 MEQ/L (21-32); CHLORIDE LEVEL 107 MEQ/L (98-107); CREATININE FOR GFR 0.87 MG/DL (0.70-1.30); GLOMERULAR FILTRATION RATE > 60.0 (>60); GLUCOSE, FASTING 91 MG/DL (70-100); POTASSIUM SERUM 3.9 MEQ/L (3.5-5.1); SODIUM LEVEL 139 MEQ/L (136-145)
[2021-05-14] MEDS: PANTOPRAZOLE 40MG TAB (PROTONIX) PO SCH (09:29)
[2021-05-14] MEDS: SODIUM CHLORIDE 0.9% INJ 10 ML SYR IV SCH (10:43)
[2021-05-14] MEDS: FILGRASTIM 480 MCG/0.8 ML SYRINGE (J1442) SC SCH (11:22)
[2021-05-14 12:49] LABS: HEMATOCRIT 29.4 % (42.0-52.0); HEMOGLOBIN 10.2 g/dl (13.5-17.5); MEAN CORPUSCULAR HEMOGLOBIN 29.7 pg (27.0-33.0); MEAN CORPUSCULAR HGB CONC 34.7 g/dl (32.0-36.5); MEAN CORPUSCULAR VOLUME 85.7 fl (80.0-96.0); PLATELET COUNT, AUTOMATED 25 10^3/uL (150-450); RED BLOOD COUNT 3.43 10^6/uL (4.30-6.10); WHITE BLOOD COUNT 0.8 10^3/uL (4.0-10.0)
[2021-05-14 14:00] VITALS: BP 126/89
--- NOTE | 2021-05-14 18:41 | IPNPDOC ---
Subjective Date Seen The patient was seen on 05/14/21. Subjective Chief Complaint/HPI Mr. Suggs is a 36 year old male with testicular cancer who just completed chemotherapy on 05/04/21 who presents with fatigue and indigestion and found to have pancytopenia. This morning, he feels well. He did not need transfusion of platelets or blood today. Still neutropenic and still requiring antibiotics. Objective Physical Examination General Exam: Positive: Alert, Cooperative Eye Exam: Positive: EOMI; Negative: Sclera icteric ENT Exam: Positive: Atraumatic Neck Exam: Positive: Supple Chest Exam: Positive: Clear to auscultation; Negative: Rales, Rhonchi, Wheezing Heart Exam: Positive: Tachycardic, Regular Rhythm Abdomen Exam: Positive: Normal bowel sounds, Soft; Negative: Tenderness Extremity Exam: Negative: Edema Neuro Exam: Positive: Normal Speech, Cranial Nerves 3-12 NL Psych Exam: Positive: Mental status NL, Mood NL Assessment /Plan Assessment Mr. Suggs is a 36 year old male with testicular cancer who just completed chemotherapy on 05/04/21 who presents with fatigue and indigestion. He was found to be pancytopenic. This pancytopenia and indigestion is most likely due to chemotherapy. Oncology evaluated patient and provided recommendations. Plan/VTE VTE Prophylaxis Ordered?: Yes Plan 1. Neutropenia -Patient should be in individual room -Requesting neutropenic diet (no raw foods like salad, only cooked foods) -Zosyn IV as prophylaxis -MRSA swab negative -Neupogen 480mcg daily as long as absolute neutrophil count is less than 500 2. Symptomatic anemia -Most likely cause of exertional dyspnea and weakness -Unlikely GI bleed as no change in stool or frequent bowel movement -Most likely due to chemotherapy -Hold apixaban -Hgb goal of 9 -Total of 5u pRBC given. 3. Thrombocytopenia -Platelet goal of 20,000 -Transfusing platelets -Total of 6u given. 4. History of pulmonary embolism -Possibly due to clot on PICC/Port -Repeat CT angio is negative for clot -Hold apixaban at this time. Can consider restarting when platelets are more appropriate. 5. DVT ppx -No chemical ppx -TEDs Disposition: Bone marrow still suppressed. Pending improvement in cell lines. When neutropenia resolves, can consider discharge. On discharge, would recommending touching base with oncology about patient's apixaban in the setting of low platelets. VS, I&O, 24H, Fishbone Vital Signs/I&O Vital Signs Date Time Temp Pulse Resp B/P (MAP) Pulse Ox O2 Delivery O2 Flow Rate FiO2 05/14/21 14:00 98.4 73 17 126/89 (101) 96 Room Air I&O- Last 24 Hours up to 6 AM 05/14/21 06:00 Intake Total 2463 ml Output Total 1 ml Balance 2462 ml Laboratory Data 24H LABS Laboratory Tests 2 05/14/21 05:55: Immature Granulocyte % (Auto) 0.0, Neutrophils (%) (Auto) 23.0L, Lymphocytes (%) (Auto) 65.4H, Monocytes (%) (Auto) 9.0H, Eosinophils (%) (Auto) 1.3, Basophils (%) (Auto) 1.3H, Neutrophils # (Auto) 0.2L, Lymphocytes # (Auto) 0.5L, Monocytes # (Auto) 0.1, Eosinophils # (Auto) 0.0, Basophils # (Auto) 0.0, Nucleated Red Blood Cells % (auto) 0.0, Immature Platelet Fraction 1.2, Anion Gap 5L, Glomerular Filtration Rate > 60.0, Calcium Level 8.6 05/14/21 12:03: Nucleated Red Blood Cells % (auto) 0.0 CBC/BMP Laboratory Tests 05/14/21 05:55 05/14/21 12:03 Microbiology Microbiology 05/10/21 Blood Culture - Preliminary, Resulted No Growth after 72 hours. All specime... 05/10/21 Blood Culture - Preliminary, Resulted No Growth after 72 hours. All specime... FILI PALAFOX DO May 14, 2021 18:41
[2021-05-14 21:11] VITALS: BP 131/91
[2021-05-15] MEDS ORDERED: SODIUM CHLORIDE 0.9% INJ 10 ML SYR IV PRN (00:10)
[2021-05-15] MEDS: PIPERACILLIN/TAZOBACTAM SOD 3.375 GM in D5W MINI-BAG PLUS 50 ML IV SCH ×4 (02:49→20:08)
[2021-05-15 05:51] VITALS: BP 133/81
[2021-05-15 06:22] LABS: EOS % 0.8 % (0.0-3.0); HEMATOCRIT 28.1 % (42.0-52.0); HEMOGLOBIN 9.7 g/dl (13.5-17.5); LYMPH # 0.6 10^3/uL (1.5-5.0); MEAN CORPUSCULAR HEMOGLOBIN 29.8 pg (27.0-33.0); MEAN CORPUSCULAR HGB CONC 34.5 g/dl (32.0-36.5); MEAN CORPUSCULAR VOLUME 86.5 fl (80.0-96.0); MONO # 0.1 10^3/uL (0.0-0.8); MONO % 10.6 % (2.0-8.0); NEUTROPHILS % 39.8 % (36.0-66.0); RED BLOOD COUNT 3.25 10^6/uL (4.30-6.10); WHITE BLOOD COUNT 1.2 10^3/uL (4.0-10.0)
[2021-05-15 06:26] LABS: NEUTROPHILS # 0.5 10^3/uL (1.5-8.5); PLATELET COUNT, AUTOMATED 16 10^3/uL (150-450)
[2021-05-15 06:47] LABS: BLOOD UREA NITROGEN 13 MG/DL (7-18); CALCIUM LEVEL 8.7 MG/DL (8.5-10.1); CARBON DIOXIDE LEVEL 27 MEQ/L (21-32); CHLORIDE LEVEL 109 MEQ/L (98-107); CREATININE FOR GFR 1.06 MG/DL (0.70-1.30); GLOMERULAR FILTRATION RATE > 60.0 (>60); GLUCOSE, FASTING 87 MG/DL (70-100); POTASSIUM SERUM 4.5 MEQ/L (3.5-5.1); SODIUM LEVEL 142 MEQ/L (136-145)
[2021-05-15] MEDS: PANTOPRAZOLE 40MG TAB (PROTONIX) PO SCH (08:26)
[2021-05-15] MEDS: SODIUM CHLORIDE 0.9% INJ 10 ML SYR IV SCH (09:48)
[2021-05-15] MEDS: FILGRASTIM 480 MCG/0.8 ML SYRINGE (J1442) SC SCH (09:48)
--- NOTE | 2021-05-15 12:39 | IPNPDOC ---
Text Note Date of Service The patient was seen on 05/15/21. NOTE Subjective: Patient is a 36-year-old male with a past history of testicular ca ncer who completed chemotherapy on 05/04/2021 presented with fatigue and indigestion and was found to have pancytopenia. Patient is feeling well however he is thrombocytopenic as well as neutropenic. Patient denies any pain at this time. Review of systems: General: Patient denies fevers HEENT: Patient denies headaches Cardiovascular: Patient denies chest pain Respiratory: Patient denies shortness of breath, cough GI: Patient denies abdominal pain, nausea, vomiting, diarrhea : Patient denies increased frequency or pain with urination Extremities: Patient denies swelling or pain in extremities Neurological: Patient denies numbness or tingling in legs Physical exam: Vitals: See below General: Alert and oriented male patient who was sitting in the chair when I walked into the room. Patient did not appear to be in any acute distress. HEENT: Normocephalic, atraumatic, moist mucous membranes. Neck: No lymphadenopathy or thyromegaly Cardiac: Regular rate and rhythm, no murmurs, normal S1, normal S2 Pulm: Clear to auscultation bilaterally. No wheezes, rhonchi, rales Abd: Nondistended, nontender to palpation, normal bowel sounds Ext: No edema bilateral lower extremities Labs: See below Imaging: No new imaging has been performed Assessment/plan: Patient is a 36-year-old male who presented to the hospital on 05/10/2021 with pancytopenia. Patient's neutropenia and anemia have improved however the, patient is still severely neutropenic. 1. Neutropenia. Patient's ANC today is 477 which is still severe neutropenia. Patient received another dose of Neupogen earlier today. We will continue to monitor. We will continue neutropenic precautions. I did call the patient's oncologist Dr. Rogers who recommended that the patient receive a unit of platelets if the platelets are from a single donor and 4 units of platelets if they are from mixed donors. I called the blood bank and the blood bank uses only platelets from single donor so 1 unit of platelets will be given. Patient will continue with IV Zosyn as prophylaxis. 2. Symptomatic anemia. Patient's exertional dyspnea and weakness has improved. Patient's hemoglobin has improved and is above the goal of greater than 8. Patient hemoglobin today was 9.7. We will continue to monitor. 3. Thrombocytopenia. Goal platelets of 20,000. Patient's platelets were 16,000 today. Patient has received a total of 6 units of platelets at this time. Patient will receive 1 unit of platelets as above. 4. History of pulmonary embolism. Patient possibly had a clot due to a PICC/port. Repeat CT angio was negative for pulmonary embolism on admission. We will continue to hold apixaban at this time due to anemia and will consider restarting when platelets are closer to the normal range. 5. DVT prophylaxis no chemical prophylaxis due to thrombocytopenia. Teds and ambulation. Disposition: Patient's bone marrow is still suppressed and patient is still severely neutropenic. Patient will need additional doses of Neupogen. If the patient's ANC is above 500 tomorrow, we can consider discharging based on oncolo gy recommendations. VS,Fishbone, I+O VS, Fishbone, I+O Laboratory Tests 05/15/21 05:59 Vital Signs Date Time Temp Pulse Resp B/P (MAP) Pulse Ox O2 Delivery O2 Flow Rate FiO2 05/15/21 05:51 98.5 75 17 133/81 (98) 95 Room Air I&O- Last 24 Hours up to 6 AM 05/15/21 06:00 Intake Total 2260 ml Balance 2260 ml YENNI PICKERING DO May 15, 2021 12:39
[2021-05-15 14:00] VITALS: BP 131/80
[2021-05-15 16:40] VITALS: BP 129/81
[2021-05-15 22:17] VITALS: BP 117/81
[2021-05-16] MEDS: PIPERACILLIN/TAZOBACTAM SOD 3.375 GM in D5W MINI-BAG PLUS 50 ML IV SCH (01:48)
[2021-05-16 07:22] LABS: EOS % 0.5 % (0.0-3.0); HEMATOCRIT 29.7 % (42.0-52.0); HEMOGLOBIN 10.1 g/dl (13.5-17.5); LYMPH # 0.6 10^3/uL (1.5-5.0); LYMPH % 28.9 % (24.0-44.0); MEAN CORPUSCULAR HEMOGLOBIN 29.9 pg (27.0-33.0); MEAN CORPUSCULAR VOLUME 87.9 fl (80.0-96.0); MONO # 0.2 10^3/uL (0.0-0.8); MONO % 11.3 % (2.0-8.0); NEUTROPHILS % 53.1 % (36.0-66.0); RED BLOOD COUNT 3.38 10^6/uL (4.30-6.10); WHITE BLOOD COUNT 1.9 10^3/uL (4.0-10.0)
[2021-05-16 07:23] LABS: PLATELET COUNT, AUTOMATED 31 10^3/uL (150-450)
[2021-05-16 07:43] LABS: BLOOD UREA NITROGEN 11 MG/DL (7-18); CALCIUM LEVEL 8.5 MG/DL (8.5-10.1); CARBON DIOXIDE LEVEL 27 MEQ/L (21-32); CHLORIDE LEVEL 106 MEQ/L (98-107); CREATININE FOR GFR 0.92 MG/DL (0.70-1.30); GLOMERULAR FILTRATION RATE > 60.0 (>60); GLUCOSE, FASTING 84 MG/DL (70-100); POTASSIUM SERUM 4.3 MEQ/L (3.5-5.1); SODIUM LEVEL 139 MEQ/L (136-145)
[2021-05-16] MEDS: PANTOPRAZOLE 40MG TAB (PROTONIX) PO SCH (08:56)
[2021-05-16] MEDS: SODIUM CHLORIDE 0.9% INJ 10 ML SYR IV SCH (08:56)
--- NOTE | 2021-05-16 11:11 | DS.PDOC ---
Discharge Summary General Date of Admission May 10, 2021 at 16:43 Date of Discharge 05/16/2021 Attending Physician: YENNI PICKERING DO Specialist/Consultants Involve: MAMADOU LAMBERT MD Discharge Summary PROCEDURES PERFORMED DURING STAY: Multiple blood and platelet transfusions. ADMITTING DIAGNOSES: 1. Neutropenia 2. Symptomatic anemia 3. Thrombocytopenia 4. History of pulmonary embolism 5. Metastatic testicular cancer DISCHARGE DIAGNOSES: 1. Neutropenia, improved 2. Symptomatic anemia, resolved, anemia improved 3. Thrombocytopenia 4. History of pulmonary embolism 5. Metastatic testicular cancer COMPLICATIONS/CHIEF COMPLAINT: Neutropenia, Pancytopenia. HISTORY OF PRESENT ILLNESS: Patient is a 36-year-old male with a past history of testicular cancer who completed chemotherapy on 05/04/2021 who presented to the emergency department on 05/10/2021 with fatigue and indigestion and was found to have pancytopenia. Patient was admitted to the hospital for transfusions. Patient was found to be neutropenic and was started on Zosyn and colony-st imulating factors with Neupogen. Patient did have some watery diarrhea but without blood or darkening of his stool. Patient said he had a temperature between 99.3 and 100.3. Patient was given a GI cocktail in the emergency department which did help his abdominal discomfort. HOSPITAL COURSE: While the patient was hospitalized he received 5 units of leukocyte reduced packed red blood cells and 7 units of leukocyte reduced pheresis platelets. Patient also received Neupogen on all days of hospi talization with the exception of his day of discharge, 05/16/2021. The goal was to get the patient's ANC above 500, hemoglobin above 8, and platelets above 20,000 according to oncology. Patient was feeling well throughout the hospitalization especially once his hemoglobin had returned above our goal of 8. Patient did have thrombocytopenia with a platelet count of 16,000 on 05/15/2021. Because of this, patient did receive an additional unit of platelets on 05/15/2021. On 05/16/2021, patient's ANC had recovered to 1000 which represents mild neutropenia, his hemoglobin was 10.1 and his platelets were 31,000. I spoke with Dr. Lambert of oncology who agreed that the patient is ready for discharge with follow-up with oncology on Thursday or Thursday. Patient was deemed ready for discharge on 05/16/2021. DISCHARGE MEDICATIONS: Please see below. ALLERGIES: Please see below. PHYSICAL EXAMINATION ON DISCHARGE: VITAL SIGNS: Please see below. General: Alert and oriented male patient who was sitting in the chair when I walked into the room. Patient did not appear to be in any acute distress. HEENT: Normocephalic, atraumatic, moist mucous membranes. Neck: No lymphadenopathy or thyromegaly Cardiac: Regular rate and rhythm, no murmurs, normal S1, normal S2 Pulm: Clear to auscultation bilaterally. No wheezes, rhonchi, rales Abd: Nondistended, nontender to palpation, normal bowel sounds Ext: No edema bilateral lower extremities LABORATORY DATA: Please see below. IMAGING: CT of the abdomen and pelvis with IV contrast performed on 05/10/2021 was reported to show known retroperitoneal cystic structure adjacent to the IVC again noted which may be slightly decreased in size from prior examination, no further similar abnormal lesions or adenopathy noted. No ascites. Circumferential thickening to the distal esophagus which may reflect esophagitis and should be correlated clinically. No further acute abdominal pelvic pathology appreciated. CT angiography of the chest was performed on 05/10/2021 and was reported to show no evidence of pulmonary embolus, no acute mediastinal or pleural parenchymal process. PROGNOSIS: Fair ACTIVITY: As tolerated. DIET: Regular DISCHARGE PLAN: Discharge home DISCHARGE INSTRUCTIONS: 1. Follow-up with oncology either Thursday or Thursday depending on when the appointment is made. 2. Follow-up with your primary care provider within 5 to 7 days of discharge. ITEMS TO FOLLOWUP ON ON OUTPATIENT: 1. Follow-up on the patient's blood counts to ensure that the ANC remains greater than 500, hemoglobin greater than 8, and platelets greater than 20,000. DISCHARGE CONDITION: Stable. TIME SPENT ON DISCHARGE: Greater than 30 minutes. Vital Signs/I&Os Vital Signs Date Time Temp Pulse Resp B/P (MAP) Pulse Ox O2 Delivery O2 Flow Rate FiO2 05/15/21 22:17 98.6 62 18 117/81 (93) 96 Room Air I&O- Last 24 Hours up to 6 AM 05/16/21 06:00 Intake Total 1141 ml Balance 1141 ml Laboratory Data Labs 24H Laboratory Tests 2 05/16/21 06:26: Immature Granulocyte % (Auto) 5.2H, Neutrophils (%) (Auto) 53.1, Lymphocytes (%) (Auto) 28.9, Monocytes (%) (Auto) 11.3H, Eosinophils (%) (Auto) 0.5, Basophils (%) (Auto) 1.0, Neutrophils # (Auto) 1.0L, Lymphocytes # (Auto) 0.6L, Monocytes # (Auto) 0.2, Eosinophils # (Auto) 0.0, Basophils # (Auto) 0.0, Nucleated Red Blood Cells % (auto) 0.0, Immature Platelet Fraction 1.9, Anion Gap 6L, Glomerular Filtration Rate > 60.0, Calcium Level 8.5 CBC/BMP Laboratory Tests 05/16/21 06:26 Microbiology Microbiology 05/10/21 Blood Culture - Final, Complete NO GROWTH AFTER 5 DAYS 05/10/21 Blood Culture - Final, Complete NO GROWTH AFTER 5 DAYS Discharge Medications Scheduled Apixaban (Eliquis) 5 Mg Tablet, 1 TAB PO as directed 2 tablets twice a day for 7 days then one tablet twice daily Pantoprazole Sodium (Pantoprazole Sodium) 40 Mg Tablet.dr, 40 MG PO DAILY Scheduled PRN Ondansetron (Ondansetron Odt) 8 Mg Tab.rapdis, 8 MG PO Q8HP PRN for NAUSEA OR VOMITING Prochlorperazine Maleate (Prochlorperazine Maleate) 10 Mg Tablet, 10 MG PO Q6H PRN for NAUSEA OR VOMITING Allergies Coded Allergies: No Known Allergies (Verified Allergy, Unknown, 03/06/21) YENNI PICKERING DO May 16, 2021 11:11
--- NOTE | 2021-05-17 07:55 | MEDONCENPD ---
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 He received 3 cycles of cisplatin and etoposide. He refused bleomycin due to the concern over not being able to continue flying. Patient was admitted due to chemotherapy-induced pancytopenia. He received transfusion of packed cells and platelets as well as prophylactic antibiotic. Patient did extremely well and he was discharged with right May 16, 2021 and will follow up with the cancer center early next week. Patient did receive Neulasta so we expect that now his granulocyte will start becoming fairly high. Patient is scheduled to have a preoperative operative clearance at [facility] in [place] for resection of his mixed germ cell tumor. 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 Patient follows with Dr. Colon. MAMADOU LAMBERT MD May 17, 2021 07:55
== END 2021-05-16 12:31 | disposition home or self-care (01) | DRG 810 ==
LOC: M ED 10:47 → M ED INP 16:43 → ENRESERV 17:28 → M MS5PR 19:25
PROVIDERS: ADMIT Internal Medicine; ATTEND Family Medicine
PROC: 30233R1 Transfusion of Nonautologous Platelets into Peripheral Vein, Percutaneous Approach (ICD-10-PCS; 2021-05-10)
PROC: 30233N1 Transfusion of Nonautologous Red Blood Cells into Peripheral Vein, Percutaneous Approach (ICD-10-PCS; principal; 2021-05-11)
DX: D61.810 Antineoplastic chemotherapy induced pancytopenia (principal); D64.81 Anemia due to antineoplastic chemotherapy; D69.6 Thrombocytopenia, unspecified; Z86.711 Personal history of pulmonary embolism; Z92.21 Personal history of antineoplastic chemotherapy; Z79.899 Other long term (current) drug therapy; C62.90 Malignant neoplasm of unspecified testis, unspecified whether descended or undescended; D70.9 Neutropenia, unspecified

== ENCOUNTER → 2021-08-22 | Outpatient (CLI) | payer OTHER ==
--- NOTE | 2021-08-25 12:39 | ECHO ---
ECHOCARDIOGRAM DATE OF PROCEDURE: 08/22/2021 Age: 36 Gender: Male Height: 175 cm Weight: 73 kg REFERRING PROVIDER: Dm Gold M.D. PATIENT LOCATION: Outpatient. REASON FOR THE STUDY: Chemotherapy drug monitoring. MEASUREMENTS: 2D Measurements: IVS 1.1 cm LV 4.8 cm LVPW 1.1 cm LA 3.8 cm Aorta 3.9 cm IVC 2.1 cm Doppler Measurements: Peak velocity across the aortic valve 1.1 m/sec Peak velocity across the LVOT 0.73 m/sec Mitral E 0.64 Mitral A 0.60 with a ratio of 1.1 Maximum tricuspid valve velocity 2.1 m/sec 2D COMMENTS: 1. Normal left ventricular size and wall thickness. Left ventricular systolic function appeared to be normal, estimated between 65-70%. 2. Normal left atrium. Normal right atrium and right ventricle. 3. The atrial septum appeared to be normal without evidence of defect or shunt. 4. Mildly dilated aortic root at 3.9 cm. 5. Trace pericardial effusion seen. No evidence of cardiac tamponade. 6. Minimally calcified aortic valve with normal leaflet excursion. Normal mitral valve, tricuspid valve and pulmonic valve. 7. The inferior vena cava was dilated. Central venous pressure is probably elevated. DOPPLER: It detects mild mitral regurgitation, mild tricuspid regurgitation. The calculated pulmonary artery pressure appeared to be normal. IMPRESSION: 1. Normal global left ventricular systolic and diastolic function. 2. Aortic valve sclerosis without stenosis or aortic regurgitation. 3. Mild mitral regurgitation. 4. Mild tricuspid regurgitation with a normal calculated pulmonary artery systolic pressure. 5. Isolated mildly dilated aortic root at 3.9 cm. 6. There are some findings of elevated central venous pressure. The inferior vena cava was mildly enlarged. 7. Trace pericardial effusion noted. No evidence of cardiac tamponade.
== END ==
LOC: M CARPUL 12:57
PROVIDERS: ATTEND Internal Medicine Medical Oncology
DX: D70.9 Neutropenia, unspecified (principal); Z92.21 Personal history of antineoplastic chemotherapy

== ENCOUNTER → 2021-09-11 | Outpatient (CLI) | payer OTHER ==
[~2021-09-11] MED LIST changes: +GASTROGRAFIN SOLUTION 30ML (Q9963) ONE; +ISOVUE-370 76% 100ML VIAL ONE
--- NOTE | 2021-09-11 17:08 | REP ---
INDICATION: POST OP GERM CELL TUMOR. COMPARISON: 05/10/2021, 04/18/2021, 02/13/2020. TECHNIQUE: A bolus 100 mL Isovue 370 scanning through the chest with coronal and sagittal reconstructions provided. FINDINGS: Of the lung randhawa are well inflated the tiny right upper lobe nodule on the April study is not visible on today's examination. There is no of parenchymal mass, pleural thickening, pleural effusion, calcified pleural plaque or acute infiltrate. No definite nodules. Heart is not enlarged there is no pericardial thickening or effusion. The aorta is without aneurysm or dissection. Main, right and left pulmonary arteries as well as the visible lobar arteries are without filling defects. I would note that the pulmonary embolism seen in the right main pulmonary artery into the lower lobe artery and 2 segments is completely resolved since the CT of 04/18/2021. There is no pathologic mediastinal or hilar adenopathy. No axillary or supraclavicular masses noted indwelling port catheter on the previous study is unchanged there is a new port catheter more laterally in the anterior right upper chest also of via the jugular route. Tracheal airway intact. Bone windows show sternum, manubrium, clavicles, AC joints, humeral heads, scapulae, ribs and the visible spine all intact without focal lesion. The upper abdomen shows no definite acute finding in the liver, spleen, adrenal glands, upper poles of kidneys or that portion of pancreas visible. Please see CT abdomen report this date for full detail. IMPRESSION: 1. There is no CT evidence of intrathoracic metastatic disease. I see no mediastinal or hilar adenopathy, parenchymal lung nodules or masses, focal bone abnormalities or other acute findings. I would note that the pulmonary emboli in the right main and lower lobe arteries on the April study are completely resolved without recurrence. <Electronically signed by Kade Harris > 09/11/21 [id number]
--- NOTE | 2021-09-11 17:33 | REP ---
INDICATION: POST OP GERM CELL TUMOR. COMPARISON: 05/10/2021, 04/18/2021 TECHNIQUE: Oral Gastrografin mixture 10 mL in 290 mL of flavored water for 2 doses per our bowel contrast protocol followed by bolus 100 mL Isovue 370 scanning through the abdomen and pelvis. Coronal and sagittal reconstructions are performed and delayed images through the abdomen then obtained. FINDINGS: CT abdomen: No definite hiatal hernia. Liver shows a hypodensity in left hepatic lobe about 6 mm, unchanged and most consistent with a small hepatic cyst with CT attenuation value 22 HU. No hepatosplenomegaly, adjacent ascites, solid parenchymal mass, calcified gallstone or pancreatic abnormality. Right lateral chest wall has a port/collection device with tubing extending superiorly and inferiorly. The inferior tube extends to the right upper quadrant abutting the inferior pole of the right lobe of the liver down to the sylvain hepatis into the retroperitoneum adjacent to the right kidney and peritoneal gutter. The large low-density mass in the aortocaval the region on the previous study is no longer evident. Now there is a soft tissue density isodense to pancreatic head abutting this region. There is a new periaortic low-density lesion 3.7 x 2.9 x 6[address] attenuation values 24 HU. Adjacent aorta unremarkable. There are multiple periaortic and aortocaval surgical clips from retroperitoneal lymph node dissection for his known germ-cell tumor. There are other normal sized mesenteric and retroperitoneal nodes present. The right kidney shows no hydronephrosis, stone, mass or cyst. The left kidney shows small to moderate hydronephrosis as a new finding. Adrenal glands are normal. Small bowel loops and colon in the abdomen proper are unremarkable. Lung window review of all CT slices in the abdomen shows no perforation or free air. Bone windows show the vertebral bodies, posterior elements and visualized lower ribs all intact. CT pelvis: Bone windows show the sacrum, SI joints, pelvis and hips all unremarkable. The bladder well distended with the no wall thickening, stone, debris or mass. No dilated ureters are visible. Distal left colon sigmoid and rectum unremarkable. Pelvic surgical clips from lymph node dissection are noted. There inguinal surgical clips bilaterally right more than left. I do not see iliac chain adenopathy or mass. Some fullness of the common femoral, external iliac and common iliac veins. IVC caliber. Unremarkable cecum unremarkable. No ventral or inguinal hernia. IMPRESSION: 1. Status post retroperitoneal lymph node dissection in the periaortic, iliac chains and inguinal region for known germ-cell tumor with multiple surgical clips in place. 2. Low-density mass lesion in the aortocaval region no longer present but some soft tissue density in that area is seen and it is isodense to adjacent pancreatic head. New low-density lesion periaortic to the left of midline measuring 6.1 x 3.[address] attenuation of 24 HU could be a necrotic node or seroma postoperative state. 3. No generalized ascites. Liver and spleen grossly intact. Port/collection device and drain in the right chest wall extending to the peritoneal gutter below the right lobe of the liver and kidney. 4. New finding of some moderate right hydronephrosis, none on the left. Symmetric renal enhancement without atrophy at this time. <Electronically signed by Kade Harris > 09/11/21 [id number]
== END ==
LOC: M PLAIMG 12:17
PROVIDERS: ATTEND Internal Medicine Hematology & Oncology
DX: Z48.89 Encounter for other specified surgical aftercare (principal); N13.30 Unspecified hydronephrosis; R93.89 Abnormal findings on diagnostic imaging of other specified body structures
CPT/HCPCS: 71260; 74177; Q9963; Q9967

== ENCOUNTER → 2021-10-02 | Outpatient (CLI) | payer OTHER ==
[~2021-10-02] MED LIST changes: -GASTROGRAFIN SOLUTION 30ML (Q9963) ONE; -ISOVUE-370 76% 100ML VIAL ONE
--- NOTE | 2021-10-02 10:35 | PFTRPT ---
Height: 69.00 Inches Weight: 158.00 Lbs BSA: 1.87 Diagnosis: NEUTROPENIA DATE: 10/02/2021 ORDERING PROVIDER: Dr. Chad Rogers Pre and post bronchodilator study is of excellent technical quality. Forced vital capacity is normal. FEV1 is in proportion, obstructive index is, therefore, normal. Expiratory limit of the flow-volume loop is normal. No significant bronchodilator response is identified. Total lung capacity is normal. Residual volume is in proportion. Diffusing capacity although mildly reduced is appropriate for alveolar volume. Hemoglobin mildly reduced at 11.8. Airway resistance and conductance are normal. IMPRESSION: Mild reduction in the absolute diffusing capacity may be on the basis of mild anemia. Please correlate clinically. MTDD
== END ==
LOC: M CARPUL 09:23
PROVIDERS: ATTEND Internal Medicine Medical Oncology
DX: D70.9 Neutropenia, unspecified (principal)

== ENCOUNTER → 2021-11-25 | Outpatient (CLI) | payer OTHER ==
[~2021-11-25] MED LIST changes: +GASTROGRAFIN SOLUTION 30ML (Q9963) As Ordered ONE; +ISOVUE-370 76% 100ML VIAL As Ordered ONE; -PROC10TA4 PO; +PROC10TA5 PO
== END ==
LOC: M RAD 10:59
PROVIDERS: ATTEND Internal Medicine Hematology & Oncology
DX: C62.90 Malignant neoplasm of unspecified testis, unspecified whether descended or undescended (principal)
CPT/HCPCS: 71260; 74177; Q9963; Q9967

== ENCOUNTER → 2022-01-30 | Outpatient (CLI) | payer OTHER ==
[~2022-01-30] MED LIST changes: -GASTROGRAFIN SOLUTION 30ML (Q9963) As Ordered ONE; -ISOVUE-370 76% 100ML VIAL As Ordered ONE
== END ==
LOC: M RAD 09:07
PROVIDERS: ATTEND Internal Medicine Hematology & Oncology
DX: R94.5 Abnormal results of liver function studies (principal)

== ENCOUNTER → 2022-02-07 | Outpatient (CLI) | payer OTHER ==
[~2022-02-07] MED LIST changes: +GASTROGRAFIN SOLUTION 30ML (Q9963) As Ordered ONE; +ISOVUE-370 76% 100ML VIAL As Ordered ONE
== END ==
LOC: M RAD 12:35
PROVIDERS: ATTEND Internal Medicine Hematology & Oncology
DX: C62.90 Malignant neoplasm of unspecified testis, unspecified whether descended or undescended (principal)
CPT/HCPCS: 71260; 74177; Q9963; Q9967

== ENCOUNTER → 2022-07-09 | Outpatient (CLI) | payer OTHER | LOC: M RAD 14:48 | PROVIDERS: ATTEND Internal Medicine Medical Oncology | DX: C62.90 Malignant neoplasm of unspecified testis, unspecified whether descended or undescended (principal) | CPT/HCPCS: 71260; 74177; Q9963; Q9967 ==

== ENCOUNTER → 2023-01-05 | Outpatient (CLI) | payer OTHER ==
[~2023-01-05] MED LIST changes: -GASTROGRAFIN SOLUTION 30ML (Q9963) As Ordered ONE; +GASTROGRAFIN SOLUTION 30ML As Ordered ONE
== END ==
LOC: M RAD 07:57
PROVIDERS: ATTEND Internal Medicine
DX: C62.90 Malignant neoplasm of unspecified testis, unspecified whether descended or undescended (principal)

== ENCOUNTER 2023-05-28 06:19 | Day surgery (SDC) | payer OTHER ==
[~2023-05-28] VITALS: Ht 175.3 cm; Wt 81.5 kg
[~2023-05-28 06:19] MED LIST changes: -GASTROGRAFIN SOLUTION 30ML As Ordered ONE; -ISOVUE-370 76% 100ML VIAL As Ordered ONE; +VITMTA PO; +ceFAZolin SOD 2 GM in IV 1 EA IV ONE
[2023-05-28] MEDS ORDERED: LR 1,000 ML IV SCH ×2 (06:40→10:25)
[2023-05-28] MEDS ORDERED: LIDOCAINE 2% 100MG/5ML SDV (FOR ANES.) As Ordered ONE (07:21)
[2023-05-28] MEDS ORDERED: propofoL 200 MG/20 ML VIAL As Ordered ONE (07:21)
[2023-05-28] MEDS ORDERED: fentaNYL 250 MCG/5 ML INJECTION As Ordered ONE (07:21)
[2023-05-28] MEDS ORDERED: ONDANSETRON 4MG 2ML VIAL As Ordered ONE (07:21)
[2023-05-28] MEDS ORDERED: MIDAZOLAM INJ 2MG/2ML VIAL As Ordered ONE (07:22)
[2023-05-28] MEDS ORDERED: GENTAMICIN SULF 80MG/2ML VIAL As Ordered ONE (07:27)
[2023-05-28] MEDS ORDERED: ACETAMINOPHEN 1000MG 100ML IV BAG As Ordered ONE (08:17)
[2023-05-28] MEDS ORDERED: HYDROmorphone HCL 2MG/ML 1ML VIAL As Ordered ONE (08:23)
[2023-05-28] MEDS ORDERED: ROCURONIUM BROMIDE 50MG/5ML VIAL As Ordered ONE (08:24)
[2023-05-28] MEDS ORDERED: ePHEDrine SULFATE 25 MG/5 ML(5MG/ML) SYRINGE As Ordered ONE (09:06)
[2023-05-28] MEDS ORDERED: SUGAMMADEX SODIUM 500 MG/5 ML VIAL (BRIDION) As Ordered ONE (09:51)
[2023-05-28] MEDS ORDERED: fentaNYL 100 MCG/2 ML INJECTION IV PRN (10:25)
[2023-05-28] MEDS ORDERED: ONDANSETRON 4MG 2ML VIAL IV PRN (10:25)
[2023-05-28] MEDS ORDERED: OXYC1TAB23 PO (10:48)
[2023-05-28] MEDS ORDERED: oxyCODONE 5MG TAB PO PRN (10:50)
[2023-05-28] MEDS ORDERED: HYDROMORPHONE HCL 0.5 MG/ 0.5 ML SYRINGE IV PRN (10:50)
[2023-05-28 12:05] VITALS: BP 138/75; TEMP 97.2; O2SAT 98
== END 2023-05-28 12:15 | disposition home or self-care (01) ==
LOC: M SDC 06:19
PROVIDERS: ATTEND Plastic Surgery Surgery of the Hand
DX: L90.5 Scar conditions and fibrosis of skin (principal); Z85.47 Personal history of malignant neoplasm of testis; Z92.21 Personal history of antineoplastic chemotherapy
CPT/HCPCS: 11406; 13101; 13102; 88304; C9290; J0131; J0665; J0690; J1100; J1170; J1580; J2250; J2405; J3010

== ENCOUNTER → 2024-02-10 | Outpatient (CLI) | payer OTHER ==
[~2024-02-10] MED LIST changes: +GASTROGRAFIN SOLUTION 30ML ONE; +ISOVUE-370 76% 100ML VIAL ONE; +OXYC1TAB23 PO; -ceFAZolin SOD 2 GM in IV 1 EA IV ONE
== END ==
LOC: M PLAIMG 10:54
PROVIDERS: ATTEND Nurse Practitioner
DX: D70.9 Neutropenia, unspecified (principal)

== ENCOUNTER → 2024-04-15 | Outpatient (CLI) | payer OTHER ==
[~2024-04-15] MED LIST changes: -GASTROGRAFIN SOLUTION 30ML ONE; -ISOVUE-370 76% 100ML VIAL ONE; +ONDA-284 PO; -ONDA8TAB8 PO
[2024-04-15 11:04] LABS: INR 0.99; PARTIAL THROMBOPLASTIN TIME 29.9 SECONDS (24.8-34.2); PROTHROMBIN TIME 12.8 SECONDS (12.5-14.5)
[2024-04-15 11:14] LABS: IRON (FE) 68 UG/DL (65-175); PERCENT SATURATION 21.7 % (19.7-50.0); TOTAL IRON BINDING CAPACITY 313 UG/DL (250-425)
[2024-04-15 12:14] LABS: HEPATITIS B SURFACE ANTIBODY POSITIVE (POSITIVE)
[2024-04-15 12:25] LABS: HEPATITIS B SURFACE ANTIGEN NEGATIVE (NEGATIVE)
[2024-04-15 12:46] LABS: HEPATITIS C VIRUS ABY INDEX 0.06 INDEX (<0.8)
[2024-04-15 12:47] LABS: ALBUMIN 4.6 G/DL (3.2-5.2); ALKALINE PHOSPHATASE 54 U/L (46-116); ALT/SGPT 26 U/L (7.0-40); AST/SGOT 16 U/L (<34); BILIRUBIN,DIRECT 0.5 MG/DL (<0.4); BILIRUBIN,TOTAL 1.8 MG/DL (0.3-1.2); FERRITIN 389.1 NG/ML (10.5-307.3); THYROID STIMULATING HORMONE 1.133 uIU/ML (0.55-4.78); TOTAL PROTEIN 7.2 G/DL (5.7-8.2)
[2024-04-16 06:38] LABS: T P ELECTROPHORESIS SO 7.4 g/dL (6.1-8.1)
[2024-04-16 09:18] LABS: HEPATITIS A IgG TOTAL REACTIVE (NON-REACTIVE)
[2024-04-18 13:42] LABS: ALPHA 1 ANTITRYPSIN 123 mg/dL (83-199)
[2024-04-18 14:38] LABS: TISSUE TRANSGLUTAMINASE IgA < 1.0 U/mL (<15.0); TISSUE TRANSGLUTAMINASE IgG < 1.0 U/mL (<15.0)
[2024-04-18 15:22] LABS: ANTI-MITOCHONDRIAL ANTIBODY NEGATIVE (NEGATIVE)
[2024-04-19 06:17] LABS: ALBUMIN SPEP 4.9 g/dL (3.8-4.8); ALPHA-1-GLOBULINS SO 0.2 g/dL (0.2-0.3); ALPHA-2-GLOBULINS SO 0.5 g/dL (0.5-0.9); BETA 2 GLOBULIN 0.4 g/dL (0.2-0.5); BETA-GLOBULIN SO 0.4 g/dL (0.4-0.6)
[2024-04-19 09:13] LABS: ANA SCREEN, IFA NEGATIVE (NEGATIVE)
[2024-04-21 16:01] LABS: ANTI-SMOOTH MUSCLE ANTIBODY < 20 U (<20)
== END ==
LOC: M WUC 08:17
PROVIDERS: ATTEND Student in an Organized Health Care Education/Training Program
DX: K76.0 Fatty (change of) liver, not elsewhere classified (principal); R79.89 Other specified abnormal findings of blood chemistry

== ENCOUNTER → 2024-04-23 | Outpatient (CLI) | payer OTHER | LOC: M LAB 10:00 | PROVIDERS: ATTEND Student in an Organized Health Care Education/Training Program | DX: K76.0 Fatty (change of) liver, not elsewhere classified (principal); R79.89 Other specified abnormal findings of blood chemistry ==

== ENCOUNTER → 2024-08-02 | Outpatient (CLI) | payer OTHER ==
[~2024-08-02] MED LIST changes: +THERTAB52 PO
[2024-08-02 10:46] LABS: ALBUMIN 4.2 G/DL (3.2-5.2); BILIRUBIN,DIRECT 0.5 MG/DL (<0.4); BILIRUBIN,TOTAL 1.6 MG/DL (0.3-1.2)
== END ==
LOC: M LAB 09:04
PROVIDERS: ATTEND Student in an Organized Health Care Education/Training Program
DX: R79.89 Other specified abnormal findings of blood chemistry (principal)

== ENCOUNTER → 2025-01-26 | Outpatient (CLI) | payer OTHER ==
[~2025-01-26] MED LIST changes: +ISOVUE-370 76% 100ML VIAL As Ordered ONE
== END ==
LOC: M RAD 12:33
PROVIDERS: ATTEND Internal Medicine Hematology & Oncology
DX: C62.90 Malignant neoplasm of unspecified testis, unspecified whether descended or undescended (principal); S72.121A Displaced fracture of lesser trochanter of right femur, initial encounter for closed fracture; X58.XXXA Exposure to other specified factors, initial encounter; Y92.9 Unspecified place or not applicable
CPT/HCPCS: 20610; 71260; 74177; 77002; J3301; Q9967

== ENCOUNTER → 2025-01-26 | Outpatient (CLI) | payer OTHER ==
[~2025-01-26] MED LIST changes: +ISOVUE-300 61% 100ML VIAL As Ordered ONE; -ISOVUE-370 76% 100ML VIAL As Ordered ONE; +LIDOCAINE 1% MDV 20ML VIAL As Ordered ONE; +TRIAMCINOLONE ACETONIDE SUSP 40MG/ML 1ML VIAL As Ordered ONE
== END ==
LOC: M RAD 12:37
PROVIDERS: ATTEND Physician Assistant Surgical
DX: S73.121A Ischiocapsular ligament sprain of right hip, initial encounter (principal); X58.XXXA Exposure to other specified factors, initial encounter; Y92.9 Unspecified place or not applicable
CPT/HCPCS: 20610; 77002; J3301; Q9967